=== PATIENT | female | born 1990 | race Caucasian/White ===

== ENCOUNTER 2021-05-17 03:57 | Emergency (ER) | payer OTHER ==
[~2021-05-17] VITALS: Ht 165.1 cm; Wt 81.7 kg
[2021-05-17] MEDS ORDERED: CLEOCIN HCL300 MG PO (04:27)
--- OUTSIDE RECORDS SUMMARY | 2021-05-17 04:48 | XMS ---
PreManage Notification: HU MCMULLEN Security District Supervisor Events No recent Security Events currently on file CRITERIA MET - [facility] - [facility] - 2 Visits in 30 Days CARE PROVIDERS There are no care providers on record at this time. Kike has no Care Guidelines for this patient. Jamie VISIT COUNT (12 MO.) [address] [facility] NOTE: Visits indicate total known visits. ED/C VISIT TRACKING (12 MO.) 05/17/2021 03:58 [facility] [place] TYPE: Emergency COMPLAINT: - BUG [facility] DIAGNOSES: - bug bite [facility]17[facility]2020 09[facility] DIAGNOSES: - Sprain of medial collateral ligament of left knee, initial encounter - Right knee pain after fall this morning. - Knee Pain [facility]02[facility]2020 06[facility] DIAGNOSES: - Flank Pain - Unspecified abdominal pain - right side pain INPATIENT VISIT TRACKING (12 MO.) No inpatient visits to display in this time frame [email or web address]
== END 2021-05-17 04:43 | disposition home or self-care (01) ==
LOC: ED 03:57
DX: L03.115 Cellulitis of right lower limb (principal); F17.200 Nicotine dependence, unspecified, uncomplicated; Z88.2 Allergy status to sulfonamides
CPT/HCPCS: 99283

== ENCOUNTER 2023-11-07 19:43 | Emergency (ER) | payer OTHER ==
[~2023-11-07] VITALS: Ht 165.1 cm; Wt 95.2 kg
[~2023-11-07 19:43] MED LIST: CLEOCIN HCL300 MG PO
[2023-11-07 20:10] VITALS: BP 130/91
== END 2023-11-07 20:10 | disposition home or self-care (01) ==
LOC: ED 19:43
DX: S61.211A Laceration without foreign body of left index finger without damage to nail, initial encounter (principal); F17.200 Nicotine dependence, unspecified, uncomplicated; W26.0XXA Contact with knife, initial encounter; Z88.2 Allergy status to sulfonamides
CPT/HCPCS: 99282